=== PATIENT | female | born 1995 | race Caucasian/White ===

== ENCOUNTER 2018-12-03 12:11 | Emergency (ER) | payer OTHER ==
[~2018-12-03] VITALS: Ht 167.6 cm; Wt 68.0 kg
[2018-12-03] MEDS ORDERED: KEFLEX500 M1 PO (14:21)
[2018-12-03 14:53] VITALS: BP 118/56
== END 2018-12-03 14:45 | disposition home or self-care (01) ==
LOC: ER 12:11
DX: S61.211A Laceration without foreign body of left index finger without damage to nail, initial encounter (principal); W26.0XXA Contact with knife, initial encounter; Y92.89 Other specified places as the place of occurrence of the external cause; Y99.0 Civilian activity done for income or pay; Y99.8 Other external cause status